=== PATIENT | female | born 1955 | race Caucasian/White ===

== ENCOUNTER → 2018-05-14 | Outpatient (CLI) | payer BC ==
[~2018-05-14] MED LIST: ASPI-757 PO; AZIT-18 PO; BENZ100C4 PO; HYDR12.556 PO; LANS15CA54 PO; LISI-374 PO
[2018-05-14 08:53] LABS: PLATELET COUNT, AUTOMATED 216 K/uL (150-450)
--- NOTE | 2018-05-14 09:03 | EKG ---
[place]AC[place] [facility] [place] NAME: MIRTA CHEUNG : [id number] MR: [id number] V: [id number] EXAM DATE: ORDERING PHYSICIAN: MIGUEL MARIEE TECHNOLOGIST: Test Reason : Blood Pressure : / mmHG Vent. Rate : 048 BPM Atrial Rate : 048 BPM P-R Int : 136 ms QRS Dur : 086 ms QT Int : 456 ms P-R-T Axes : 086 009 018 degrees QTc Int : 407 ms Marked sinus bradycardia with sinus arrhythmia Abnormal ECG No previous ECGs available Confirmed by Christopher Danielson ([id number] on 05/14/2018 1:01:14 PM Referred By: Confirmed By:Christopher Teran
== END ==
LOC: LAB 08:23
PROVIDERS: ATTEND Orthopaedic Surgery
DX: Z01.812 Encounter for preprocedural laboratory examination (principal); Z01.810 Encounter for preprocedural cardiovascular examination; M17.11 Unilateral primary osteoarthritis, right knee
CPT/HCPCS: 81001; 85025; 93005

== ENCOUNTER → 2018-05-14 | Outpatient (CLI) | payer BC ==
[2018-05-14 09:32] LABS: LDL CHOLESTEROL 92 mg/dl
== END ==
LOC: LAB 08:23
DX: E78.2 Mixed hyperlipidemia (principal); R53.83 Other fatigue; E11.9 Type 2 diabetes mellitus without complications
CPT/HCPCS: 36415; 82040; 82247; 82310; 82374; 82435; 82465; 82565; 82947; 83036; 83718; 84075; 84132; 84155; 84295; 84443; 84450; 84460; 84478; 84520

== ENCOUNTER 2018-05-25 00:24 | Inpatient (IN) | payer BC ==
[2018-05-24 15:40] LABS: INR 0.96
[~2018-05-25] VITALS: Ht 161.3 cm; Wt 92.1 kg
[2018-05-25] VITALS (13 sets, daily range): BP systolic 107–136; BP diastolic 69–94
[2018-05-25] MEDS ORDERED: LIDOCAINE/SOD BICARB 8.4% SYR ID ONE (06:15)
[2018-05-25] MEDS ORDERED: ROPIVACAINE 0.2% 400 MG/200ML 250 ML CONINFUS ONE (06:15)
[2018-05-25] MEDS ORDERED: ACETAMINOPHEN 500 MG TAB PO ONE (06:15)
[2018-05-25] MEDS ORDERED: MIDAZOLAM 2 MG/2 ML VIAL IVP PRN (06:15)
[2018-05-25] MEDS ORDERED: TRANEXAMIC AC 1000 MG/10ML SDV 1,000 MG in DEXTROSE 5% 50 ML BAG 50 ML IV ONE (06:15)
[2018-05-25] MEDS ORDERED: NORMOSOL R SOLN(*) 1000 ML BAG 1,000 ML IV PRN ×2 (06:15→10:15)
[2018-05-25] MEDS ORDERED: cloNIDine EPIDUR INJ 100MCG/ML 40 MCG, ROPIVACAINE 0.5% 20 ML VIAL 25 ML, EPINEPHrine H... INJ ONE (06:15)
[2018-05-25] MEDS ORDERED: ceFAZolin(*) 2GM/D5W 50ML 50 ML IVPB ONE (06:15)
[2018-05-25] MEDS ORDERED: PREGABALIN 150 MG CAPSULE PO ONE (06:15)
[2018-05-25] MEDS ORDERED: CELECOXIB 200 MG CAP PO ONE (06:15)
[2018-05-25] MEDS ORDERED: fentaNYL CITR 250 MCG/5 ML AMP ONE (06:54)
[2018-05-25] MEDS ORDERED: PROPOFOL EMUL(*) 10MG/ML 20 ML 80 ML ONE (06:55)
[2018-05-25] MEDS ORDERED: ONDANSETRON 4 MG/2 ML VIAL ONE (06:55)
[2018-05-25] MEDS ORDERED: DEXAMETHASONE SOD PHOS 10MG/ML ONE (06:55)
[2018-05-25] MEDS ORDERED: ROPIVACAINE 0.2% 20 ML VIAL ONE (06:57)
[2018-05-25] MEDS ORDERED: EPINEPHrine HCL 1 MG/ML AMP ONE (06:57)
[2018-05-25] MEDS ORDERED: ROCURONIUM BROM 10 MG/ML 5 ML ONE (07:30)
[2018-05-25] MEDS ORDERED: KETAMINE HCL 200 MG/20 ML MDV ONE (07:40)
[2018-05-25] MEDS ORDERED: HYDROmorphone HCL 2 MG/ML SDV ONE (07:53)
[2018-05-25] MEDS ORDERED: SUGAMMADEX SOD 200 MG/2 ML SDV ONE (08:13)
[2018-05-25] MEDS ORDERED: PROPOFOL EMUL(*) 10MG/ML 20 ML 60 ML ONE (08:19)
[2018-05-25] MEDS ORDERED: MAGNESIUM HYDROXIDE* 30ML UDCP PO PRN (10:15)
[2018-05-25] MEDS ORDERED: ZOLPIDEM TARTRATE 5 MG TAB PO PRN (10:15)
[2018-05-25] MEDS ORDERED: MORPHINE 4 MG/ML SDV IVP PRN (10:15)
[2018-05-25] MEDS ORDERED: ONDANSETRON 4 MG/2 ML VIAL IVP PRN (10:15)
[2018-05-25] MEDS ORDERED: FLUSH 10 ML SYR IVP PRN (10:15)
[2018-05-25] MEDS ORDERED: BISACODYL 10 MG SUPP PR PRN (10:15)
[2018-05-25] MEDS ORDERED: PROMETHAZINE 25 MG/ML 1 ML AMP IVP PRN (10:15)
[2018-05-25] MEDS ORDERED: METF-450 PO (10:47)
--- NOTE | 2018-05-25 12:06 | Hospitalist Consultation ---
History of Present Illness Requesting Physician Dr. Stephen Reason for Consult Hypertension and diabetes. History of Present Illness This patient was admitted for knee replacement surgery. It is reported that the surgery went well and was without complication. History Problems: (1) Essential hypertension (2) DMII (diabetes mellitus, type 2) Home Meds Reported Medications Metformin Hcl (METFORMIN HCL) 500 Mg Tablet, 2 TAB PO BID, TAB 05/25/18 Aspirin (ASPIRIN) 325 Mg Tablet, 325 MG PO DAILY, TAB 03/20/15 Lansoprazole (PREVACID) 15 Mg Capsule.dr, 15 MG PO QDAY 03/20/15 Hydrochlorothiazide (HYDROCHLOROTHIAZIDE) 12.5 Mg Capsule, 1 TAB PO QDAY, CAPSULE 03/20/15 Lisinopril (LISINOPRIL) 40 Mg Tablet, 40 MG PO QDAY 03/20/15 Discontinued Scripts Benzonatate 100 Mg Cap (TESSALON PERLE 100 MG CAP) 100 Mg Capsule, 100 MG PO TID, #30 CAP 0 Refills Prov:SHAYNE CORDERO MD 03/20/15 Azithromycin 250 Mg Tab (AZITHROMYCIN 250 MG TAB) 250 Mg Tablet, 0 PO QDAY, #6 TAB Take two tablets today, then one daily for 4 more days. Prov:SHAYNE CORDERO MD 03/20/15 Allergies: Coded Allergies: No Known Drug Allergies (Unverified , 03/20/15) Patient History: FH: diabetes mellitus FATHER, BROTHER OR SISTER FH: heart disease FATHER, BROTHER OR SISTER FH: stroke BROTHER OR SISTER Hx Smoking: No Smoking Status: Never Smoker Caffeine Intake: Coffee Caffeine/Cups Per Day: 3 CUPS DAILY Hx Alcohol Use: Yes Hx Substance Use Disorder: No Social Drug Use: Never History of IV Drug Use: No Review of Systems All Systems Reviewed/Normal: Yes Exam Vital Signs Vital Signs Date Time Temp Pulse Resp B/P (MAP) Pulse Ox O2 Delivery O2 Flow Rate FiO2 05/25/18 10:40 64 16 92 05/25/18 10:39 97.4 134/78 (96) Nasal Cannula 2.0 Cardiovascular: Regular Rate and Rhythm Respiratory: Clear to Auscultation Assessment and Plan Problems: (1) S/P knee replacement Assessment & Plan: She is on aspirin prophylaxis. (2) Essential hypertension Assessment & Plan: She is on chronic treatment with lisinopril and hydrochlorothiazide. The lisinopril has been continued with hold parameters. (3) DMII (diabetes mellitus, type 2) Assessment & Plan: She is on chronic treatment with metformin, which can likely be restarted tomorrow. Copies to: MIGUEL STEPHEN MD ; Venous Thromboembolism Antithrombotics Is Pt On Any Antithrombotics?: No JOSELYN ISABEL DO May 25, 2018 12:06
[2018-05-25] MEDS: oxyCODONE HCL 5 MG CAP PO PRN ×2 (12:12→19:44)
--- NOTE | 2018-05-25 13:13 | CARSON TKA ---
EVENT DATE: May 25, 2018 SURGEON: Liam Stephen MD ANESTHESIOLOGIST: Jayson Machado MD ANESTHESIA: Right adductor block with indwelling catheter followed by general anesthesia. We also utilized 50 cc of our standard Toradol ropivacaine cocktail and 1 gram of IV tranexamic acid ten minutes prior to start and at the end of the implantation. SLAB STRIPPER: Elliott Merrill PA-C PREOPERATIVE DIAGNOSIS Right knee degenerative joint disease. POSTOPERATIVE DIAGNOSIS Right knee degenerative joint disease. PROCEDURE PERFORMED Right total knee arthroplasty. INSTRUMENTATION Micro-Port Medial Pivot CS System with a 4 femur, 4 tibia, 12 mm insert, 8x32 symmetric patella. Femur cut 6 degrees valgus, 10 mm. We also utilized two packages of [employer] Apex Blue cement and ZipLine Wound Closure System. ESTIMATED BLOOD LOSS Less than 200 cc. SPECIMENS None. COMPLICATIONS None. OPERATION The patient received appropriate preoperative antibiotic and was brought to the OR, where Dr. Machado performed right adductor block followed by general anesthesia. A right though tourniquet was placed. Right thigh tourniquet placed. Right lower extremity prepped and draped in the usual sterile fashion. Midline incision was made followed by medial parapatellar arthrotomy. I dissected subperiosteally along the medial tibial plateau at the level of the semimembranosus insertion. Laterally, a portion of fat pad was excised, patella released, adhesions in lateral gutter released, patella everted and knee brought into full flexion. The remaining articular cartilage was removed from the distal femoral condyles with a sagittal saw and ACL and PCL were released subperiosteally by Bovie. A step-cut drill was utilized to broach the femoral canal and we placed intramedullary a distal femoral cutting guide, setting this up at 10 mm, 6 degrees valgus and we placed retractors to protect the soft tissues. Distal cutting guide. 3-degree external rotation guide and sizer was then positioned, referencing out the anterior flange, epicondyles and posterior condyles. This was sized to a #4 and 3-degree external rotation holes drilled. Four-in-one cutting block was positioned followed by Z-retractors to place the soft tissues and four cuts were made. The tibia was brought anteriorly in the femur. Appropriate retractor and step-cut drill was utilized to broach the tibia canal. We placed the intramedullary tibial sera inside and then referencing 10 mm, releasing the lateral tibial plateau. We set our cutting block up for depth to cut and rotation. This was pinned into place. Protective retractors were placed, tibial cut made and this was sized to #4. The stump of the ACL and PCL, medial and lateral meniscus were removed by Bovie. Posterior osteophytes were removed by curved osteotome and the capsule elevated with Lopes elevator. Tibial trial was then positioned, referencing for the previous rotation and pinned into place. First, a 10 mm and then moving up to a 12 mm insert was placed as well as our trial femur. The knee was then able to be fully extended. Suction was limited only body habitus. She was stable through varus and valgus stress and at 90 degrees with solid anterior drawer. The knee was then placed in full extension. The patella was measured at 21 mm. We set up our guide for a 6 mm cut and this was performed. The peg hole trial was positioned inferiorly medially. The peg hole was drilled for 32x8 symmetric patella, which was then placed. The knee was brought up in flexion again. We drilled for pegs and these were placed followed by cutting for trochlear chip, which was then placed. Again, we had the aforementioned range of motion and stability. The patella tracked well. The patella, femur and tibial insert was removed. Appropriate retractors were placed and set up for tibial keel. This was then cut, reamed and punched. The instrumentation was removed. Bone plug was placed in the distal femur and we started to irrigate while we mixed two packages of Apex Blue cement. We then irrigated 10 cc of our cocktail in the posterior capsule and then irrigated once again copiously. We then placed the knee in appropriate position and starting with the tibia this was cemented into place followed by our 12 mm CS insert and #4 femur. Excess cement was removed. The knee was brought into full extension with axial compression. We cemented the patella. After 15 minutes, the cement had cured and again we had the aforementioned range of motion and stability. Copiously irrigated once again, injected our pain cocktail into the distal quad mechanism followed by closure of the arthrotomy with #2 Vicryl followed by 2-0 Vicryl for subcutaneous tissues and then our ZipLine Wound Closure System and a compressive dressing. The patient was extubated and taken to recovery in stable condition. Hospitalist team will be consulted for medical management and anticoagulation and PT for rehab. MARIA M
--- NOTE | 2018-05-25 14:52 | RADIOLOGY IMAGING REPORT ---
FACILITY: [facility] - [place] PATIENT NAME: Jing Simons : 1955 MR: [id number] V: [id number] EXAM DATE: ORDERING PHYSICIAN: MIGUEL MARIEE TECHNOLOGIST: Location: [facility] Patient: Jing Simons : 1955 Visit/Account:[id number] Date of Sevice: 05/25/2018 Exam type: KNEE LIMITED RIGHT History: POSTOP RTKA Comparison: None. Findings: Two views of the right knee demonstrate a right knee arthroplasty in good anatomic alignment. Soft t issue gas projects over the anterior aspect of this postoperative knee IMPRESSION: 1. As above Report Dictated By: Nickie Fuentes MD at 05/25/2018 2:47 PM Report E-Signed By: Nickie Fuentes MD at 05/25/2018 2:47 PM WSN:[id number]
[2018-05-25] MEDS: ceFAZolin(*) 2GM/D5W 50ML 50 ML IVPB SCH (16:47)
[2018-05-25] MEDS: ACETAMINOPHEN 500 MG TAB PO SCH (16:47)
[2018-05-25] MEDS ORDERED: metFORMIN HCL 500 MG TAB PO SCH (17:00)
[2018-05-26] VITALS (7 sets, daily range): BP systolic 94–147; BP diastolic 59–77; Ht 161.3 cm; Wt 92.1 kg
[2018-05-26] MEDS: ceFAZolin(*) 2GM/D5W 50ML 50 ML IVPB SCH ×2 (00:44→08:37)
[2018-05-26] MEDS: ACETAMINOPHEN 500 MG TAB PO SCH ×3 (00:44→16:21)
[2018-05-26] MEDS: KETOROLAC TROM 10MG TAB PO PRN ×3 (04:24→23:13)
[2018-05-26] MEDS ORDERED: OXYC5CAP21 PO (07:40)
[2018-05-26] MEDS: LANSOPRAZOLE 15 MG CAPCR PO SCH (08:38)
[2018-05-26] MEDS: metFORMIN HCL 500 MG TAB PO SCH ×2 (08:38→20:41)
[2018-05-26] MEDS: ASPIRIN 325 MG ENTERIC COATED PO SCH (08:38)
[2018-05-26] MEDS: LISINOPRIL 20 MG TAB PO SCH (09:00)
--- NOTE | 2018-05-26 11:16 | Hospitalist Progress Note ---
Subjective Progress Notes Subjective She has no complaints this morning. She had no acute events overnight. Patient Complains of: Cardiovascular: No: Chest Pain Respiratory: No: Shortness of Breath Physical Exam Vital Signs Date Time Temp Pulse Resp B/P (MAP) Pulse Ox O2 Delivery O2 Flow Rate FiO2 05/26/18 10:41 113/68 (83) 05/26/18 10:40 91 05/26/18 07:27 Room Air 05/26/18 07:24 98.3 85 14 05/26/18 04:17 2.0 Intake and Output 05/26/18 07:00 Intake Total 2726 ml Output Total 125 ml Balance 2601 ml Intake Oral 1076 ml IV Total 1650 ml Output Estimated Blood Loss 125 ml # Voids 2 General Appearance: Alert, Awake, No Acute Distress, Afebrile Neuro: No Gross deficits Cardiovascular: Regular Rate and Rhythm Respiratory: No Respiratory Distress, Clear to Auscultation GI: Soft and Non-Tender Extremities: Warm, Perfused; No Edema Psych: Alert & Oriented X3, Appropriate Mood & Affect Assessment and Plan Problems: (1) S/P knee replacement Assessment & Plan: She is on aspirin prophylaxis. (2) Essential hypertension Assessment & Plan: She is on chronic treatment with lisinopril and hydrochlorothiazide. The lisinopril has been continued with hold parameters. (3) DMII (diabetes mellitus, type 2) Assessment & Plan: She is on chronic treatment with metformin. This has been restarted today. Exam Sepsis Risk: No Definite Risk NOBLE OLSONP May 26, 2018 11:16
[2018-05-26] MEDS: oxyCODONE HCL 5 MG CAP PO PRN (19:14)
[2018-05-27] MEDS: ACETAMINOPHEN 500 MG TAB PO SCH ×2 (00:49→09:14)
[2018-05-27] MEDS: oxyCODONE HCL 5 MG CAP PO PRN ×3 (02:24→12:35)
[2018-05-27 02:26] VITALS: BP 118/55
[2018-05-27 07:38] VITALS: BP 114/71
[2018-05-27] MEDS: LISINOPRIL 20 MG TAB PO SCH (09:00)
[2018-05-27] MEDS: metFORMIN HCL 500 MG TAB PO SCH (09:14)
[2018-05-27] MEDS: LANSOPRAZOLE 15 MG CAPCR PO SCH (09:14)
[2018-05-27] MEDS: ASPIRIN 325 MG ENTERIC COATED PO SCH (09:14)
[2018-05-27 10:57] VITALS: BP 136/71
--- NOTE | 2018-05-27 11:08 | Hospitalist Progress Note ---
Subjective Progress Notes Subjective She has no complaints this morning. She had no acute events overnight. She wants to go home today. Patient Complains of: Cardiovascular: No: Chest Pain Respiratory: No: Shortness of Breath Physical Exam Vital Signs Date Time Temp Pulse Resp B/P (MAP) Pulse Ox O2 Delivery O2 Flow Rate FiO2 05/27/18 09:15 84 05/27/18 07:38 Nasal Cannula 1.0 05/27/18 07:38 98.3 54 16 114/71 (85) Intake and Output 05/27/18 07:00 Intake Total 976 ml Balance 976 ml Intake Oral 976 ml # Voids 3 General Appearance: Alert, Awake, No Acute Distress, Afebrile Neuro: No Gross deficits Cardiovascular: Regular Rate and Rhythm Respiratory: No Respiratory Distress, Clear to Auscultation GI: Soft and Non-Tender Psych: Alert & Oriented X3, Appropriate Mood & Affect Assessment and Plan Problems: (1) S/P knee replacement Assessment & Plan: She is on aspirin prophylaxis. (2) Essential hypertension Assessment & Plan: She is on chronic treatment with lisinopril and hydrochlorothiazide. She was instructed to hold her blood pressure medications for two days, then resume. If she feels lightheaded, she will stop them and contact her PCP. (3) DMII (diabetes mellitus, type 2) Assessment & Plan: She is on chronic treatment with metformin. Exam Sepsis Risk: No Definite Risk NOBLE OLSONP May 27, 2018 11:08
== END 2018-05-27 12:58 | disposition home or self-care (01) | DRG 470 ==
LOC: OR 00:24 → OBSVTOIN 10:39 → MED 10:39
PROVIDERS: ADMIT Orthopaedic Surgery; ATTEND Orthopaedic Surgery
PROC: 0SRC0J9 Replacement of Right Knee Joint with Synthetic Substitute, Cemented, Open Approach (ICD-10-PCS; principal; 2018-05-25 07:21)
DX: M17.11 Unilateral primary osteoarthritis, right knee (principal); M25.761 Osteophyte, right knee; I10 Essential (primary) hypertension; E11.9 Type 2 diabetes mellitus without complications; Z79.84 Long term (current) use of oral hypoglycemic drugs; Z95.5 Presence of coronary angioplasty implant and graft; Z90.710 Acquired absence of both cervix and uterus
CPT/HCPCS: 36415; 36416; 76942; 82948; 85610; 86850; 86900; 86901; 97161; C1713; C1776; J0171; J0690; J0735; J1100; J1170; J1885; J2250; J2405; J2704; J2795; J3010; J3490; J7050; J7060